=== PATIENT | female | born 1985 | race Caucasian/White ===

== ENCOUNTER → 2021-07-28 | Day surgery (SDC) | payer BC ==
[~2021-07-28] MED LIST: CITALOPRAM HBR20 MG PO; DEXAMETHASONE SOD PHOS 10 MG/1 ML VIAL ONE; FENTANYL CITRATE/PF 100MCG/2 ML INJ ONE; GLYCOPYRROLATE INJ 0.2 MG/ML VIAL ONE; LIDOCAINE 1% W/EPINEPHRINE 20 ML VIAL ONE; LIDOCAINE HCL 2% LOCAL INJ 5 ML SDV VIAL INJ ONE; MIDAZOLAM HCL 2 MG/2 ML VIAL ONE; NEOSTIGMINE 1 MG/ML 10ML VIAL ONE; ONDANSETRON HCL INJ 2MG/ML 2ML 2 MG/ML VIAL ONE; OXYMETAZOLINE HCL 0.05% NAS 1 SPRAY BTL ONE; POVIDONE IODINE 0.05% 0.05 % ML PO ONE; PROPOFOL IV EMULSION 10 MG/ML 20 ML VIAL ONE; ROCURONIUM BROMIDE 10 MG/ML 5ML VIAL IV ONE; SEVOFLURANE INHAL SOLN 250 ML PEN BTL ONE; SUGAMMADEX SODIUM 200 MG/2 ML VIAL IV ONE; VALACYCLOVIR1000 MG PO
[2021-07-28 14:20] VITALS: BP 111/70
== END | disposition home or self-care (01) ==
LOC: OR 10:08
PROVIDERS: ATTEND Otolaryngology Otolaryngology/Facial Plastic Surgery
DX: K13.4 Granuloma and granuloma-like lesions of oral mucosa (principal); E78.5 Hyperlipidemia, unspecified; F41.9 Anxiety disorder, unspecified; K14.9 Disease of tongue, unspecified; Z01.812 Encounter for preprocedural laboratory examination
CPT/HCPCS: 31535; 31622; 42100; 43191; 81025; 88305; J1100; J2001; J2250; J2405; J2704; J2710; J3010